=== PATIENT | female | born 1995 | race Caucasian/White ===

== ENCOUNTER 2016-10-22 12:25 | Emergency (ER) | payer OTHER ==
[~2016-10-22] VITALS: Ht 162.6 cm; Wt 56.0 kg
[~2016-10-22 12:25] MED LIST: DEPO150I IM
[2016-10-22 12:28] VITALS: BP 140/82; PULSE 90; RESP 20; TEMP 98.1; O2SAT 99
[2016-10-22] MEDS ORDERED: ROBA500T PO (13:07)
[2016-10-22] MEDS ORDERED: IBUP800T23 PO (13:07)
--- NOTE | 2016-10-22 13:10 | PD ---
HPI Chief Complaint: Pain: Acute or Chronic Time Seen by Provider: 13:06 Travel History International Travel<30 days: No Contact w/Intl Traveler<30days: No Traveled to known affect area: No History of Present Illness HPI 21-year-old female presents to emergency Department with complaint of left upper back pain for approximately 1 year. Denies new or recent injury. Denies previous injury. Says she's been experiencing back pain since after having her son and thinks it may be related to having to carry him and left him. Denies paresthesias, loss of sensation, decreased range of motion, decreased strength to the left upper extremity. Denies fever, vomiting. Has tried Tylenol and ibuprofen with no relief of symptoms. This pain is constant and feels like it' s a pain in her back. No known relieving factors. Pain is aggravated with movement of the shoulder and feels like she has a "knot" in her back. No known allergies. Has no other medical complaints. No other modifying factors or associated signs and symptoms. PFSH Past Medical History ?: Not LMP: 10/14/16 : 1 Social History Alcohol Use: No Tobacco Use: Yes Substance Use: No Allergies-Medications (Allergen,Severity, Reaction): Coded Allergies: No Known Allergies (Unverified , 10/22/16) Reported Meds & Prescriptions Reported Meds & Active Scripts Active Ibuprofen 800 Mg Tab 800 Mg PO Q6HR PRN Robaxin (Methocarbamol) 500 Mg Tab 500 Mg PO QID PRN Depo-Provera Inj (Medroxyprogesterone Inj) 150 Mg/Ml Inj 150 Mg IM Q90D Review of Systems Except as stated in HPI: all other systems reviewed are Neg Physical Exam Narrative GENERAL: Well-nourished, well-developed female patient, in no acute distress; afebrile, nontoxic-appearing SKIN: Warm and dry. HEAD: Atraumatic. Normocephalic. EYES: Pupils equal and round. No scleral icterus. No injection or drainage. ENT: Mucosa pink and moist. Airway patent. NECK: Supple. Trachea midline. CARDIOVASCULAR: Regular rate and rhythm. No murmur appreciated. RESPIRATORY: No accessory muscle use. Clear to auscultation. Breath sounds equal bilaterally. GASTROINTESTINAL: Flat. MUSCULOSKELETAL: Left shoulder is without erythema, edema, ecchymosis; full range of motion and greater than 45 abduction; joint is stable; shoulders equal ; without tenderness on palpation. Left upper extremity is supple and non- tense with 2+ radial pulses and sensory intact. 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 No clubbing. No cyanosis. No edema. BACK: Reducible tenderness to the left upper back over the trapezius muscle in multiple areas. No midline point tenderness on palpation of the thoracic spine. NEUROLOGICAL: Awake and alert. Oriented 3. No obvious cranial nerve deficits. Motor grossly within normal limits. Normal speech. PSYCHIATRIC: Appropriate mood and affect; insight and judgment normal. Data Data Last Documented VS Vital Signs Date Time Temp Pulse Resp B/P Pulse Ox O2 Delivery O2 Flow Rate FiO2 10/22/16 12:53 16 10/22/16 12:28 98.1 90 140/82 99 Room Air Orders Methocarbamol (Robaxin) (10/22/16 13:15) Ibuprofen (Motrin) (10/22/16 13:15) MDM Medical Decision Making Medical Screen Exam Complete: Yes Emergency Medical Condition: Yes Medical Record Reviewed: Yes Differential Diagnosis Muscle spasm, muscle strain, muscle cramp Narrative Course 21-year-old female who skull exam consistent with left-sided trapezius muscle spasms. Robaxin and ibuprofen administered in the ER. Ibuprofen or Robaxin prescribed for home. Patient verbalizes understanding and agreement with treatment plan. Patient is medically cleared and stable for discharge. Discussed reasons to return to the emergency department. Instructed patient to follow up with primary care provider. Patient agrees with treatment plan. The patients vital signs are stable and the patient is stable for outpatient follow- up and treatment. Patient discharged home, stable and in no acute distress. Diagnosis Primary Impression: Trapezius muscle spasm Referrals: Primary Care Physician Patient Instructions: General Instructions, Muscle Spasm (ED), Muscle Strain ( ED) Departure Forms: Tests/Procedures, Work Release Enter return to work date: October 23, 2016 Additional Instructions: Tylenol or ibuprofen as directed and as needed to reduce pain Robaxin as prescribed for muscle spasms Get adequate rest Ice and/or heating pad to affected area to reduce pain Avoid aggravating activity; increase activity as tolerated Follow-up with primary care provider Return to the emergency department immediately with worsening symptoms Med/Other Pt SpecificInfo: Prescription(s) given Scripts Ibuprofen 800 Mg [id number] Mg PO Q6HR PRN (PAIN) #30 TAB Ref 0 Prov:Cira Link 10/22/16 Methocarbamol (Robaxin)500 Mg [id number] Mg PO QID PRN (MUSCLE SPASM) #30 TAB Ref 0 Prov:Cira Link 10/22/16 Disposition: 01 DISCHARGE HOME Condition: Stable Cira Link October 22, 2016 13:10
[2016-10-22] MEDS ORDERED: METHOCARBAMOL 500 MG TAB PO ONE (13:15)
[2016-10-22] MEDS ORDERED: IBUPROFEN 800 MG TAB PO ONE (13:15)
== END 2016-10-22 13:22 | disposition home or self-care (01) ==
LOC: NEPK 12:25
DX: M62.838 Other muscle spasm (principal); Z72.0 Tobacco use
CPT/HCPCS: 99283